=== PATIENT | female | born 1955 | race Caucasian/White ===

== ENCOUNTER 2017-11-06 12:54 | Outpatient (CLI) | payer MEDICARE, MEDICAID ==
[2017-11-06 14:18] LABS: #Basophils 0.1 thou/uL (0.0-0.2); #Eosinphils 0.2 thou/uL (0.0-0.7); #Lymphocytes 2.4 thou/uL (1.20-3.40); #Monocytes 0.5 thou/uL (0.11-0.59); #Neutrophils 5.9 thou/uL (1.40-6.50); %Basophils 0.9 % (0.0-1.0); %Lymphocytes 26.3 % (21.0-51.0); %Monocytes 5.3 % (0.0-10.0); %Neutrophils 65.4 % (42.0-75.0); Hemoglobin 15.1 g/dL (12.0-16.0); Mean Corpuscular Hemoglobin 29.2 pg (27.0-31.0); Mean Corpuscular Volume 88.6 fl (81.0-99.0); Mean Platelet Volume 7.3 fL (7.4-10.4); Platelet Count 357 thou/uL (130-400); RBC Distribution Width 12.3 % (11.5-14.5); Red Blood Cell (RBC) Count 5.19 mill/uL (4.20-5.40)
[2017-11-06 14:31] LABS: Bilirubin Negative (Negative); Blood, Urine Negative (Negative); Clarity CLEAR (Clear); Glucose, Urine (Dipstick) Negative (Negative); Leukocyte Small (Negative); Nitrite Negative (Negative); Protein, Urine (Dipstick) Negative (Neg-Trace); Specific Gravity, Urine 1.011 (1.002-1.036); Urobilinogen 0.2 mg/dL (0.2-1.0)
[2017-11-06 14:34] LABS: Bacteria/HPF 2+ HPF (None Seen); Hyaline Casts/LPF NONE SEEN LPF (0-3 Hyaline); RBC/HPF None Seen HPF (0-3); Squamous Epithelial 0-3 HPF (0-3)
[2017-11-06 14:37] LABS: Anion Gap 13 mmol/L (10-20); BUN (Urea Nitrogen) 10 mg/dL (9.8-20.1); Calc. Creatinine Clearance 0 mL/min (70-130); Calcium 10.1 mg/dL (7.8-10.44); Carbon Dioxide 27 mmol/L (23-31); Chloride 102 mmol/L (98-107); Estimated GFR-MDRD 69; Glucose 142 mg/dL (80-115); Potassium 3.9 mmol/L (3.5-5.1); Sodium 138 mmol/L (136-145)
--- NOTE | 2017-11-06 15:19 | RAD ---
CHEST TWO VIEWS: History: Pre-operative exam. Comparison: None. FINDINGS: Normal cardiac silhouette. The pulmonary vessels and hilum are normal. Costophrenic angles are clear. No consolidation or masses. No pneumothorax or osseous abnormalities. Increased density projecting o bryan the left breast, likely representing a partially calcified lesion. IMPRESSION: No acute cardiopulmonary process. Largely calcified lesion projecting over the left breast which may represent an area of fat necrosis. Left breast mammogram is recommended. Code T POS: MAGGIE
--- NOTE | 2017-12-03 11:07 | EKG ---
Test Reason : Blood Pressure : / mmHG Vent. Rate : 087 BPM Atrial Rate : 087 BPM P-R Int : 166 ms QRS Dur : 062 ms QT Int : 336 ms P-R-T Axes : 055 044 076 degrees QTc Int : 404 ms Normal sinus rhythm Normal ECG When compared with ECG of 05-NOV-2012 12:13, No significant change was found Confirmed by HERMINIO PATEL M.D. ([id number]) on 12/03/2017 11:07:33 AM Referred By: LASHONDA Confirmed By:HERMINIO PATEL M.D.
== END 2017-11-06 12:55 | disposition home or self-care (01) ==
LOC: LABBT 12:54
PROVIDERS: ATTEND Orthopaedic Surgery
DX: Z01.818 Encounter for other preprocedural examination (principal); M17.12 Unilateral primary osteoarthritis, left knee; N64.59 Other signs and symptoms in breast
CPT/HCPCS: 71046; 80048; 81001; 85025; 85610; 86850; 86900; 86901; 87081; 93005; 93010

== ENCOUNTER 2017-11-06 13:15 | Inpatient (IN) | payer MEDICARE, MEDICAID ==
[2017-11-13] MEDS ORDERED: traMADol HCl 50 MG TAB PO PRN ×3 (08:50→10:53)
[2017-11-13] MEDS ORDERED: Fentanyl 100 MCG/2 ML VIAL SLOW IVP PRN ×2 (08:50)
[2017-11-13] MEDS ORDERED: Zolpidem Tartrate 5 MG TAB PO PRN ×2 (08:50→10:53)
[2017-11-13] MEDS ORDERED: HYDROcodone/Acetaminophen 10/325 mg Tablet PO PRN ×3 (08:50→10:53)
[2017-11-13] MEDS ORDERED: Acetaminophen 325 MG TAB PO PRN (08:50)
[2017-11-13] MEDS ORDERED: Ondansetron HCl/PF 4 MG/2 ML Vial IVP PRN ×3 (08:50→12:41)
[2017-11-13] MEDS ORDERED: diphenhydrAMINE 25 MG CAP PO PRN (08:50)
[2017-11-13] MEDS ORDERED: Promethazine HCl 25 MG/ML VIAL IM PRN ×3 (08:50→12:41)
[2017-11-13] MEDS ORDERED: Tranexamic Acid 1,000 MG in Sodium Chloride 0.9% 100 ML IVPB SCH (09:00)
[2017-11-13] MEDS ORDERED: Midazolam HCl 2 mg/2 ml Vial ONE (09:50)
[2017-11-13] MEDS ORDERED: Fentanyl 100 MCG/2 ML VIAL ONE ×4 (09:50→13:29)
[2017-11-13] MEDS ORDERED: CEFAZOLIN/Water 2 GM/20 ML SYRINGE ONE (09:51)
[2017-11-13] MEDS ORDERED: Fentanyl 100 MCG/2 ML VIAL IV PRN (10:53)
[2017-11-13] MEDS ORDERED: Bupivacaine 0.5% 50 ML in Sodium Chloride 0.9% 50 ML NERVE BLCK SCH (10:53)
[2017-11-13] MEDS ORDERED: Ondansetron HCl/PF 4 MG/2 ML Vial ONE (11:25)
[2017-11-13] MEDS ORDERED: Promethazine HCl 25 MG/ML VIAL SLOW IVP PRN (12:41)
--- NOTE | 2017-11-13 12:56 | PDOC.PN ---
- Subjective Encounter Start Date: 11/13/17 Encounter Start Time: 13:53 -: old records requested/rev Subjective: admitted for left total knee replacement -: consulted for medical management - Objective MAR Reviewed: Yes Radiology Reviewed by me: Yes (knee xray) Phys Exam - Physical Examination Constitutional: NAD HEENT: PERRLA, moist MMs, sclera anicteric Neck: no JVD, supple Respiratory: no wheezing, no rales, no rhonchi Cardiovascular: RRR, no significant murmur, no rub Gastrointestinal: soft, non-tender, no distention, positive bowel sounds Musculoskeletal: no edema, pulses present left knee with dressing Neurological: non-focal, normal sensation, moves all 4 limbs Lymphatic: no nodes Psychiatric: normal affect, A&O x 3 Skin: no rash, normal turgor Dx/Plan (1) Status post total left knee replacement Code(s): Z96.652 - PRESENCE OF LEFT ARTIFICIAL KNEE JOINT Status: Acute (2) Anxiety and depression Code(s): F41.9 - ANXIETY DISORDER, UNSPECIFIED; F32.9 - MAJOR DEPRESSIVE DISORDER, SINGLE EPISODE, UNSPECIFIED Status: Chronic (3) Diabetes type 2, controlled Code(s): E11.9 - TYPE 2 DIABETES MELLITUS WITHOUT COMPLICATIONS Status: Chronic (4) GERD (gastroesophageal reflux disease) Code(s): K21.9 - GASTRO-ESOPHAGEAL REFLUX DISEASE WITHOUT ESOPHAGITIS Status: Chronic (5) Hypertension Code(s): I10 - ESSENTIAL (PRIMARY) HYPERTENSION Status: Chronic - Plan cont current plan of care, PT/OT * continue aspirin for DVT prophylaxis as per protocol * continue protonix for GI prophylaxis * Code status: Full code * Home medication reconciled * continue PT/OT as per [facility] protocol treatment. * Pain control with pain meds * medication reviewed as below * symptomatic treatment. Review of Systems - Review of Systems Eyes: negative: Pain, Vision Change, Conjunctivae Inflammation, Eyelid Inflammation, Redness, Other ENT: negative: Ear Pain, Ear Discharge, Nose Pain, Nose Discharge, Nose Congestion, Mouth Pain, Mouth Swelling, Throat Pain, Throat Swelling, Other Respiratory: negative: Cough, Dry, Shortness of Breath, Hemoptysis, SOB with Excertion, Pleuritic Pain, Sputum, Wheezing Cardiovascular: negative: chest pain, palpitations, orthopnea, paroxysmal nocturnal dyspnea, edema, light headedness, other Gastrointestinal: negative: Nausea, Vomiting, Abdominal Pain, Diarrhea, Constipation, Melena, Hematochezia, Other Genitourinary: negative: Dysuria, Frequency, Incontinence, Hematuria, Retention , Other Musculoskeletal: negative: Neck Pain, Shoulder Pain, Arm Pain, Back Pain, Hand Pain, Leg Pain, Foot Pain, Other Skin: negative: Rash, Lesions, Waqas, Bruising, Other - Medications/Allergies Allergies/Adverse Reactions: Allergies Allergy/AdvReac Type Severity Reaction Status Date / Time codeine Allergy Verified 11/06/17 13:10 Medications: Current Medications Acetaminophen (Tylenol) 650 mg PO Q4H PRN PRN Reason: DECKER/ T > 101F; Mild Pain (1-3) Hydrocodone Bitart/Acetaminophen ([place] 10/325) 1 tab PO Q4H PRN PRN Reason: Pain (1-3) Hydrocodone Bitart/Acetaminophen ([place] 10/325) 2 tab PO Q4H PRN PRN Reason: PAIN (4-6) Aspirin (Ecotrin) 81 mg PO BID [facility] Cefazolin Sodium (Ancef) 2 gm SLOW IVP Q8H [facility] Stop: 11/13/17 17:01 Diphenhydramine HCl (Benadryl) 25 mg PO Q6H PRN PRN Reason: Itching Fentanyl (Sublimaze) 50 mcg IV Q1H PRN PRN Reason: BREAKTHROUGH PAIN Fentanyl (Pacu-Sublimaze) 50 mcg SLOW IVP Q10MIN PRN PRN Reason: Moderate to Severe Pain (6-10) Stop: 11/13/17 15:41 Ferrous Gluconate (Fergon) 324 mg PO BID [facility] Fluoxetine HCl (Prozac) 20 mg PO HS [facility] Gabapentin (Neurontin) 600 mg PO HS [facility] Sodium Chloride (Normal Saline 0.9%) 1,000 mls @ 100 mls/hr IV .Q10H [facility] Bupivacaine HCl 50 ml/ Sodium (Chloride) 100 mls @ 0 mls/hr NERVE BLCK INF [facility] PRN Reason: As Directed Iron/Minerals/Multivitamins (Theragran M) 1 tab PO DAILY [facility] Ketorolac Tromethamine (Toradol) 15 mg IVP Q6HR [facility] Stop: 11/15/17 06:01 Losartan Potassium (Cozaar) 50 mg PO HS [facility] Metformin HCl (Glucophage) 1,000 mg PO HS [facility] Ondansetron HCl (Zofran) 4 mg IVP Q6H PRN PRN Reason: Nausea/Vomiting Ondansetron HCl (Pacu-Zofran) 4 mg IVP ONE PRN PRN Reason: Nausea/Vomiting Stop: 11/13/17 15:41 Pantoprazole Sodium (Protonix) 20 mg PO HS [facility] Promethazine HCl (Phenergan) 12.5 mg IM Q4H PRN PRN Reason: Nausea Promethazine HCl (Pacu-Phenergan) 6.25 mg SLOW IVP ONE PRN PRN Reason: Nausea/Vomiting Stop: 11/13/17 15:41 Promethazine HCl (Pacu-Phenergan) 6.25 mg IM ONE PRN PRN Reason: Nausea/Vomiting Stop: 11/13/17 15:41 Senna/Docusate Sodium (Senokot S) 2 tab PO BID [facility] Sodium Chloride (Flush - Normal Saline) 10 ml IVF PRN PRN PRN Reason: Saline Flush Tramadol HCl (Ultram) 50 mg PO Q6H PRN PRN Reason: Mild Pain (1-3) Tramadol HCl (Ultram) 100 mg PO Q6H PRN PRN Reason: Moderate Pain 4-6 Zolpidem Tartrate (Ambien) 5 mg PO HSPRN PRN PRN Reason: Insomnia History of Present Illnes - History of Present Illness Reason for Visit: elective admission for left knee replacement History of Present Illness: s/p left total knee replacement failed outpt conservative treatment consulted for medical management - Past Medical History Cardiac: HTN, Hyperlipidemia Psych: Anxiety, Bipolar, Depression Musculoskeletal: Osteoarthritis Endocrine: Diabetes - Past Surgical History Past Surgical History: Appendectomy, Hysterectomy, Total Knee Replacement (left) - Past Family History Family History: None - Past Social History Smoke: No Alcohol: None Drugs: None Lives: With Family Domestic Violence: Negative
[2017-11-13] MEDS ORDERED: Bupivacaine HCl 0.5%/Epinephrine 1:200,000/PF 30 ml Vial ONE (13:06)
[2017-11-13] MEDS ORDERED: Bupivacaine/Epinephrine 0.25% 30 ML VIAL ONE (13:06)
--- NOTE | 2017-11-13 13:11 | RAD ---
TWO VIEWS OF THE LEFT KNEE: INDICATION: Status post total knee procedure. COMPARISON: Left knee radiograph dated 10/19/17. FINDINGS: Since the comparison examination, there has been interval placement of a left total knee prosthesis. The prosthetic components project in the expected position. There is intraarticular and scattered p eriarticular soft tissue gas consistent with the patient's recent postop state. IMPRESSION: Postoperative left knee. POS: VIKKI
[2017-11-13] MEDS ORDERED: PHENYLEPHRINE-NS 100 MCG/ML 10 ML SYRINGE ONE (13:23)
[2017-11-13] MEDS ORDERED: ePHEDrine/0.9% NaCl/PF SYRINGE 50 mg/10 ml ONE (13:23)
[2017-11-13] MEDS ORDERED: Dexamethasone 20 MG/5 ML VIAL ONE (13:23)
[2017-11-13] MEDS ORDERED: PROPOFOL 200 MG/20 ML VIAL ONE (13:23)
[2017-11-13] MEDS ORDERED: Lidocaine 1% PF 5 ML VIAL ONE (13:23)
--- NOTE | 2017-11-13 13:55 | OP ---
PREOPERATIVE DIAGNOSIS: Degenerative joint disease, left knee. POSTOPERATIVE DIAGNOSIS: Degenerative joint disease, left knee. SURGEON: Derrell Palacios M.D. LEARN TO SWIM INSTRUCTOR: Sonja Vail PA-C BLOOD LOSS: Minimal. SPECIMEN: None. DRAINS: None. COMPLICATIONS: None. TOURNIQUET TIME: 52 minutes. IMPLANTS USED: Natalia Triathlon 4 femur, 4 tibia, 9 mm CSX3 polyethylene, A29 patella. PROCEDURE IN DETAIL: After informed consent was obtained in the preoperative holding area. The luis ent was taken to the operative suite where general anesthesia was induced. Once adequate level of ge neral anesthesia was obtained, the patient was positioned and a well-padded tourniquet was placed xiomara und the left proximal thigh. The left lower extremity was then prepped and draped in the usual steri le fashion. Prior to exsanguination, a time out was called and all members of the surgical team agre ed upon site, surgeon, and patient. The extremity was then exsanguinated and the tourniquet was rais ed. A midline longitudinal incision was then made directly over the patella extending two fingerbrea dths above the superior pole of the patella and two fingerbreadths inferior to the inferior patellar pole of the patella. Deeper subcutaneous layers were dissected sharply and local bleeding was contro lled with Bovie electrocautery. A quad tendon longitudinal split was then made sharply and a median parapatellar arthrotomy was carried out both sharp and with Bovie electrocautery, carried down to one fingerbreadth medial to the tibial tubercle. The knee was then placed into flexion and the patella was everted nicely, and a copious fat pad ectomy was performed allowing for greater exposure of the t ibia. The computer-assisted distal femoral fiducial was then placed and pinned firmly, and the dista l femoral cutting guide was pinned firmly into place. The oscillating saw was then used to remove th e appropriate amount of bone. The 4-in-1 cutting block was then placed on the distal femur and the o scillating saw was used to remove the appropriate amount of bone off of the anterior, posterior, and chamfer cuts. After completion of bone cuts, the anterior cruciate ligament was resected sharply and the posterior cruciate ligament retractor was placed and the tibia was subluxed for better exposure. Partial meniscectomies were carried out, and the tibial computer-assisted fiducial was pinned, and the cutting guide was placed. Oscillating saw was then used to remove the bone with Hohmann retracto rs used to take care and protect the collateral ligaments. After the tibial resection was performed, a laminar auto damage appraiser was placed in between the freshened bone cuts. The knee placed at 90 degrees and further bilateral meniscectomies were carried out, and the curved osteotome and curettage was used t o remove any excess bone spurs in the posterior compartment. Exparel was then injected into the post erior capsule, lucho-articular synovia, pre-patella synovia, and musculature surrounding the capsule. The trial femoral component, tibial baseplate were placed with the appropriate polyethylene trial in sert with an appropriate polyethylene spacer and patellar button. The knee was taken through full ra nge of motion with flexion and extension from 0-90 degrees and patellar broach squarely in the trochl ea without any squinting or subluxation noted. The knee was also stable to varus and valgus stressin g at 0, 15, 45, and 90 degrees of flexion. The drawer was negative. All trial components were then r emoved and the keel punch was used to provide the appropriate defect in the tibia with a mallet. The freshened bone cuts were copiously irrigated with pulsatile lavage of about 1-1/2 liters to remove a ll excess debris. The freshened bone cuts were then dried and with suction and lap sponge. The knee was placed in flexion and retractors were placed to provide access to all bone cuts. Tobramycin imp regnated methyl methacrylate cement was then placed on the freshened bone cuts and implants which wer e malleted firmly into place. Curettage and Belt elevators were used to remove any excess bone ceme nt. The knee was placed into full extension and the patellar button was placed under compression, an d the cement was allowed to cure. Once completed, the components were again taken through full range of motion and copious irrigation of the knee was carried out with another liter of normal saline. A ll components were inspected fully with full range of motion and varus and valgus stressing. There wa s no laxity noted and full extension was observed clinically. Primary closure was accomplished with #2 interrupted Vicryl stitch of the arthrotomy defect. This was oversewn with a #2 running Quill bar bed stitch. The gravitational platelet system was then injected into the arthrotomy prior to closure . The subcutaneous layer was then closed with a running 0 barbed Monocryl stitch and skin closure ac complished with a running subcuticular 3-0 Monocryl barbed Quill stitch and augmented with cement on the skin. Tourniquet was lowered. Good spontaneous return of distal pulses was noted clinically and a sterile dressing was applied to the incision. The procedure was terminated without any complicati ons. The patient was awakened in the operative suite and the tourniquet was removed, and the patient was taken to the recovery room in stable condition.
[2017-11-13] MEDS ORDERED: Ketorolac Tromethamine 30 MG/ML VIAL IVP SCH (14:00)
[2017-11-13] MEDS: Aspirin 81 mg Enteric Coated Tablet PO SCH ×2 (15:42→20:33)
[2017-11-13] MEDS: CEFAZOLIN/Water 2 GM/20 ML SYRINGE SLOW IVP SCH ×2 (15:42→18:15)
[2017-11-13] MEDS: Ferrous Gluconate 324 MG TAB PO SCH ×2 (15:42→20:32)
[2017-11-13] MEDS: Senokot S 8.6-50 MG TAB PO SCH ×2 (15:43→20:30)
[2017-11-13] MEDS: Multivitamin W/ Minerals 1 TAB PO SCH (15:43)
[2017-11-13] MEDS: Ketorolac Tromethamine 30 MG/ML VIAL IVP SCH ×3 (15:43→23:44)
[2017-11-13] MEDS: Sodium Chloride 0.9% 1,000 ML IV SCH ×3 (15:43→23:45)
[2017-11-13] MEDS: Gabapentin 300 MG CAP PO SCH (20:33)
[2017-11-13] MEDS: metFORMIN 500 MG TAB PO SCH (20:33)
[2017-11-13] MEDS: FLUoxetine HCl 20 MG CAP PO SCH (20:34)
[2017-11-13] MEDS: Losartan 25 MG TAB PO SCH (20:35)
[2017-11-14] MEDS: Sodium Chloride 0.9% 1,000 ML IV SCH ×2 (05:03→15:07)
[2017-11-14] MEDS: Ketorolac Tromethamine 30 MG/ML VIAL IVP SCH ×4 (05:40→23:47)
[2017-11-14 05:43] LABS: Hemoglobin 11.9 g/dL (12.0-16.0); Mean Corpuscular HGB CONC 33.3 g/dL (32.0-36.0); Mean Corpuscular Volume 90.3 fl (81.0-99.0); Mean Platelet Volume 7.5 fL (7.4-10.4); Platelet Count 233 thou/uL (130-400); RBC Distribution Width 12.3 % (11.5-14.5); Red Blood Cell (RBC) Count 3.95 mill/uL (4.20-5.40); White Blood Cell (WBC) Count 12.9 thou/uL (4.8-10.8)
[2017-11-14] MEDS: Senokot S 8.6-50 MG TAB PO SCH ×2 (08:33→20:08)
[2017-11-14] MEDS: Aspirin 81 mg Enteric Coated Tablet PO SCH ×2 (08:33→20:08)
[2017-11-14] MEDS: Ferrous Gluconate 324 MG TAB PO SCH ×2 (08:33→20:08)
[2017-11-14] MEDS: Multivitamin W/ Minerals 1 TAB PO SCH (08:33)
--- NOTE | 2017-11-14 09:06 | PDOC.PN ---
- Subjective Encounter Start Date: 11/14/17 Encounter Start Time: 07:50 Patient seen and examined. No new complaints. No overnight events - Objective Resuscitation Status: Resuscitation Status FULL:Full Resuscitation MAR Reviewed: Yes Vital Signs & Weight: Vital Signs (12 hours) Temp Pulse Resp BP Pulse Ox 11/14/17 04:32 97.8 F 96 15 116/71 93 L 11/13/17 23:37 98.1 F 103 H 17 96/63 93 L Weight Weight 170 lb I&O: 11/13/17 11/14/17 11/15/17 06:59 06:59 06:59 Intake Total 1440 Output Total 1650 Balance -210 Result Diagrams: 11/14/17 05:03 Phys Exam - Physical Examination Constitutional: NAD HEENT: PERRLA, moist MMs, sclera anicteric Neck: no JVD, supple Respiratory: no wheezing, no rales, no rhonchi Cardiovascular: RRR, no significant murmur, no rub Gastrointestinal: soft, non-tender, no distention, positive bowel sounds Musculoskeletal: no edema, pulses present left knee surgical site with dressing Neurological: non-focal, normal sensation, moves all 4 limbs Psychiatric: normal affect, A&O x 3 Skin: no rash, normal turgor Dx/Plan (1) Status post total left knee replacement Code(s): Z96.652 - PRESENCE OF LEFT ARTIFICIAL KNEE JOINT Status: Acute (2) Anxiety and depression Code(s): F41.9 - ANXIETY DISORDER, UNSPECIFIED; F32.9 - MAJOR DEPRESSIVE DISORDER, SINGLE EPISODE, UNSPECIFIED Status: Chronic (3) Diabetes type 2, controlled Code(s): E11.9 - TYPE 2 DIABETES MELLITUS WITHOUT COMPLICATIONS Status: Chronic (4) GERD (gastroesophageal reflux disease) Code(s): K21.9 - GASTRO-ESOPHAGEAL REFLUX DISEASE WITHOUT ESOPHAGITIS Status: Chronic (5) Hypertension Code(s): I10 - ESSENTIAL (PRIMARY) HYPERTENSION Status: Chronic - Plan cont current plan of care, PT/OT, hospital social worker * continue aspirin for DVT prophylaxis as per protocol * continue protonix for GI prophylaxis * Code status: Full code * continue Home medication * continue PT/OT as per [facility] protocol treatment. * Pain control with pain meds * medication reviewed as below * symptomatic treatment * continue nerve block * will sign off * call if needed.. Review of Systems - Review of Systems Eyes: negative: Pain, Vision Change, Conjunctivae Inflammation, Eyelid Inflammation, Redness, Other ENT: negative: Ear Pain, Ear Discharge, Nose Pain, Nose Discharge, Nose Congestion, Mouth Pain, Mouth Swelling, Throat Pain, Throat Swelling, Other Respiratory: negative: Cough, Dry, Shortness of Breath, Hemoptysis, SOB with Excertion, Pleuritic Pain, Sputum, Wheezing Cardiovascular: negative: chest pain, palpitations, orthopnea, paroxysmal nocturnal dyspnea, edema, light headedness, other Gastrointestinal: negative: Nausea, Vomiting, Abdominal Pain, Diarrhea, Constipation, Melena, Hematochezia, Other Genitourinary: negative: Dysuria, Frequency, Incontinence, Hematuria, Retention , Other Musculoskeletal: negative: Neck Pain, Shoulder Pain, Arm Pain, Back Pain, Hand Pain, Leg Pain, Foot Pain, Other Skin: negative: Rash, Lesions, Waqas, Bruising, Other - Medications/Allergies Allergies/Adverse Reactions: Allergies Allergy/AdvReac Type Severity Reaction Status Date / Time codeine Allergy Verified 11/06/17 13:10 Medications: Current Medications Acetaminophen (Tylenol) 650 mg PO Q4H PRN PRN Reason: DECKER/ T > 101F; Mild Pain (1-3) Hydrocodone Bitart/Acetaminophen ([place] 10/325) 1 tab PO Q4H PRN PRN Reason: Pain (1-3) Hydrocodone Bitart/Acetaminophen ([place] 10/325) 2 tab PO Q4H PRN PRN Reason: PAIN (4-6) Aspirin (Ecotrin) 81 mg PO BID [facility] Last Admin: 11/14/17 08:33 Dose: 81 mg Diphenhydramine HCl (Benadryl) 25 mg PO Q6H PRN PRN Reason: Itching Fentanyl (Sublimaze) 50 mcg IV Q1H PRN PRN Reason: BREAKTHROUGH PAIN Ferrous Gluconate (Fergon) 324 mg PO BID [facility] Last Admin: 11/14/17 08:33 Dose: 324 mg Fluoxetine HCl (Prozac) 20 mg PO [facility] Last Admin: 11/13/17 20:34 Dose: 20 mg Gabapentin (Neurontin) 600 mg PO [facility] Last Admin: 11/13/17 20:33 Dose: 600 mg Sodium Chloride (Normal Saline 0.9%) 1,000 mls @ 100 mls/hr IV .Q10H [facility] Last Admin: 11/14/17 05:03 Dose: Not Given Bupivacaine HCl 50 ml/ Sodium (Chloride) 100 mls @ 0 mls/hr NERVE BLCK INF [facility] PRN Reason: As Directed Last Admin: 11/14/17 01:22 Dose: 100 mls Iron/Minerals/Multivitamins (Theragran M) 1 tab PO DAILY [facility] Last Admin: 11/14/17 08:33 Dose: 1 tab Ketorolac Tromethamine (Toradol) 15 mg IVP Q6HR [facility] Stop: 11/15/17 06:01 Last Admin: 11/14/17 05:40 Dose: 15 mg Losartan Potassium (Cozaar) 50 mg PO [facility] Last Admin: 11/13/17 20:35 Dose: 50 mg Metformin HCl (Glucophage) 1,000 mg PO [facility] Last Admin: 11/13/17 20:33 Dose: 1,000 mg Ondansetron HCl (Zofran) 4 mg IVP Q6H PRN PRN Reason: Nausea/Vomiting Pantoprazole Sodium (Protonix) 20 mg PO [facility] Last Admin: 11/13/17 20:34 Dose: 20 mg Promethazine HCl (Phenergan) 12.5 mg IM Q4H PRN PRN Reason: Nausea Senna/Docusate Sodium (Senokot S) 2 tab PO BID [facility] Last Admin: 11/14/17 08:33 Dose: 2 tab Sodium Chloride (Flush - Normal Saline) 10 ml IVF PRN PRN PRN Reason: Saline Flush Tramadol HCl (Ultram) 50 mg PO Q6H PRN PRN Reason: Mild Pain (1-3) Tramadol HCl (Ultram) 100 mg PO Q6H PRN PRN Reason: Moderate Pain 4-6 Zolpidem Tartrate (Ambien) 5 mg PO HSPRN PRN PRN Reason: Insomnia
--- NOTE | 2017-11-14 11:16 | DIS ---
DATE OF ADMISSION: 11/13/2017 DATE OF DISCHARGE: Pending DATE OF CONSULTATION: 11/13/2017 PRIMARY CARE PHYSICIAN: Bro Medina M.D. DISCHARGE DISPOSITION: Home. PRIMARY DISCHARGE DIAGNOSES: Left total knee replacement. SECONDARY DISCHARGE DIAGNOSES: Anxiety, depression, diabetes type 2, gastroesophageal reflux disease , and hypertension. PRIMARY PROCEDURES AND OPERATIONS: Left total knee replacement. RADIOLOGICAL INVESTIGATION: Knee x-ray. SIGNIFICANT LABORATORY DATA: Hemoglobin 11.9. DISCHARGE MEDICATIONS: Prozac 20 mg p.o. daily, gabapentin 600 mg p.o. at bedtime, Cozaar 50 mg p.o. at bedtime, metformin 1000 mg p.o. at bedtime, Protonix 40 mg p.o. at bedtime, and Pravachol 20 mg p .o. at bedtime. CONTRAINDICATIONS: None. CODE STATUS: FULL CODE. INPATIENT CONSULTANTS: Dr. Derrell Palacios was primary while in hospital. [facility] Team was consulted for medical comanagement. ALLERGIES: CODEINE. DISCHARGE PLAN: Post hospital, the patient will follow up with Dr. Derrell Palacios as instructed. The patient will follow up with primary care physician in 1 or 2 weeks. HOSPITAL COURSE: The patient is a 62-year-old female who was electively admitted by Dr. Derrell Palacios for left total knee replacement, which was done on 11/13/2017 without any complication. Postoperati vely, at [facility] Sound team was consulted for medical comanagement. We resumed the patient' s home medication while in hospital. The patient remained medically stable while in hospital. The p atient did very well with [facility] protocol treatment. Patient was given aspirin for DVT pro phylaxis. Patient will be given aspirin for DVT prophylaxis upon discharge as well as pain medicatio n as per primary team. The patient will resume all her previous home medications. The patient is medically stable. The pat ient is seen and examined at bedside today. Please see my progress note from today for further oswaldo harper.
[2017-11-14 12:14] VITALS: BMI 28.3
[2017-11-14] MEDS: HYDROcodone/Acetaminophen 10/325 mg Tablet PO PRN ×2 (12:20→20:05)
[2017-11-14] MEDS: Losartan 25 MG TAB PO SCH (20:06)
[2017-11-14] MEDS: metFORMIN 500 MG TAB PO SCH (20:06)
[2017-11-14] MEDS: Gabapentin 300 MG CAP PO SCH (20:08)
[2017-11-14] MEDS: FLUoxetine HCl 20 MG CAP PO SCH (20:08)
[2017-11-15] MEDS: HYDROcodone/Acetaminophen 10/325 mg Tablet PO PRN ×2 (04:40→12:36)
[2017-11-15] MEDS: Sodium Chloride 0.9% 1,000 ML IV SCH ×2 (05:38→12:06)
[2017-11-15] MEDS: Ketorolac Tromethamine 30 MG/ML VIAL IVP SCH (06:33)
[2017-11-15 07:54] LABS: Hemoglobin 10.9 g/dL (12.0-16.0); Mean Corpuscular HGB CONC 33.2 g/dL (32.0-36.0); Mean Corpuscular Hemoglobin 30.4 pg (27.0-31.0); Mean Corpuscular Volume 91.4 fl (81.0-99.0); Mean Platelet Volume 7.9 fL (7.4-10.4); Platelet Count 205 thou/uL (130-400); RBC Distribution Width 12.5 % (11.5-14.5); White Blood Cell (WBC) Count 8.4 thou/uL (4.8-10.8)
[2017-11-15] MEDS: Ferrous Gluconate 324 MG TAB PO SCH (08:52)
[2017-11-15] MEDS: Aspirin 81 mg Enteric Coated Tablet PO SCH (08:52)
[2017-11-15] MEDS: Multivitamin W/ Minerals 1 TAB PO SCH (08:52)
[2017-11-15] MEDS: Senokot S 8.6-50 MG TAB PO SCH (08:53)
[2017-11-15 12:10] VITALS: BP 130/74; TEMP 98.5
== END 2017-11-15 14:15 | disposition home or self-care (01) | DRG 470 ==
LOC: SURG A 11-13 08:14 → SURG B 11-13 14:20
PROVIDERS: ADMIT Orthopaedic Surgery; ATTEND Orthopaedic Surgery
PROC: 0SRD0J9 Replacement of Left Knee Joint with Synthetic Substitute, Cemented, Open Approach (ICD-10-PCS; principal; 2017-11-13)
DX: M17.12 Unilateral primary osteoarthritis, left knee (principal); E11.9 Type 2 diabetes mellitus without complications; E78.00 Pure hypercholesterolemia, unspecified; I10 Essential (primary) hypertension; K21.9 Gastro-esophageal reflux disease without esophagitis; F41.8 Other specified anxiety disorders; Z79.84 Long term (current) use of oral hypoglycemic drugs; Z79.82 Long term (current) use of aspirin; Z88.6 Allergy status to analgesic agent
CPT/HCPCS: 36415; 85027; 96374; C1713; C1776; G8978-GP-CK; G8979-GP-CI; J0670; J1100; J1885; J2001; J2250; J2405; J2704; J3010; J3370; J3490; J7050

== ENCOUNTER 2017-11-07 14:59 | Outpatient (CLI) | payer MEDICARE, MEDICAID | END 2017-11-07 15:00 | disposition home or self-care (01) | LOC: BICMAMMO 14:59 | PROVIDERS: ATTEND Family Medicine | DX: Z12.31 Encounter for screening mammogram for malignant neoplasm of breast; Z85.3 Personal history of malignant neoplasm of breast | CPT/HCPCS: 77063; 77067 ==

== ENCOUNTER 2018-01-24 10:25 | Outpatient (CLI) | payer MEDICARE, MEDICAID | END 2018-01-24 10:26 | disposition home or self-care (01) | LOC: BICCT 10:25 | PROVIDERS: ATTEND Family Medicine | DX: N39.0 Urinary tract infection, site not specified (principal); N20.0 Calculus of kidney; K57.90 Diverticulosis of intestine, part unspecified, without perforation or abscess without bleeding | CPT/HCPCS: 74176 ==

== ENCOUNTER 2019-03-18 09:18 | Outpatient (CLI) | payer MEDICARE, MEDICAID ==
--- NOTE | 2019-03-18 10:06 | MMO ---
Bilateral MAMMO Bilat Screen [facility]. CLINICAL HISTORY: Patient is 64 years old and is seen for screening. The patient has the following family history of breast cancer: mother, at age 40. The patient has a history of malignant (generic) in the left breast in 1995. The patient has a history of left Lumpectomy in 1995 - malignancy radiation therapy. VIEWS: The views performed were: bilateral craniocaudal with tomosynthesis and bilateral mediolateral oblique with tomosynthesis. FILMS COMPARED: The present examination has been compared to prior imaging studies performed at [facility] on 09/28/2003, 03/14/2007, 03/01/2010 and 11/07/2017. MAMMOGRAM FINDINGS: The breasts are almost entirely fat. Right breast: There are no suspicious masses, calcifications or areas of architectural distortion. There are benign appearing calcifications in the right breast. Left breast: There are stable post-operative changes. There are no suspicious masses, suspicious calcifications, or new areas of architectural distortion. IMPRESSION: THERE IS NO MAMMOGRAPHIC EVIDENCE OF MALIGNANCY. A ROUTINE FOLLOW-UP MAMMOGRAM IN 1 YEAR IS RECOMMENDED. THE RESULTS OF THIS EXAM WERE SENT TO THE PATIENT. ACR BI-RADS Category 2 - Benign finding MAMMOGRAPHY NOTE: 1. A negative mammogram report should not delay a biopsy if a dominant of clinically suspicious mass is present. 2. Approximately 10% to 15% of breast cancers are not detected by mammography. 3. Adenosis and dense breasts may obscure an underlying neoplasm. Reported by: SULAIMAN COREAS MD Electonically Signed: [id number]
== END 2019-03-18 09:19 | disposition home or self-care (01) ==
LOC: BICMAMMO 09:18
PROVIDERS: ATTEND Physician Assistant
DX: Z12.31 Encounter for screening mammogram for malignant neoplasm of breast (principal); Z85.3 Personal history of malignant neoplasm of breast; Z80.3 Family history of malignant neoplasm of breast
CPT/HCPCS: 77063; 77067

== ENCOUNTER 2021-01-18 09:25 | Outpatient (CLI) | payer MEDICARE, MEDICAID | END 2021-01-18 09:26 | disposition home or self-care (01) | LOC: DTY/OP 09:25 | PROVIDERS: ATTEND Physician Assistant | DX: E11.65 Type 2 diabetes mellitus with hyperglycemia (principal) | CPT/HCPCS: 97802 ==

== ENCOUNTER 2021-04-22 14:00 | Outpatient (CLI) | payer MEDICARE, MEDICAID ==
[~2021-04-22 14:00] MED LIST: Iopamidol-370 76% 500 ML 1 ML ONE
== END 2021-04-22 14:01 | disposition home or self-care (01) ==
LOC: BICCT 14:00
PROVIDERS: ATTEND Registered Nurse
DX: R10.2 Pelvic and perineal pain (principal); K76.0 Fatty (change of) liver, not elsewhere classified; N20.0 Calculus of kidney; K57.30 Diverticulosis of large intestine without perforation or abscess without bleeding
CPT/HCPCS: 74177; 82565

== ENCOUNTER 2021-04-27 14:21 | Outpatient (CLI) | payer MEDICAID | END 2021-04-27 14:22 | disposition home or self-care (01) | LOC: BICMAMMO 14:21 | PROVIDERS: ATTEND Registered Nurse | DX: Z12.31 Encounter for screening mammogram for malignant neoplasm of breast (principal); Z80.3 Family history of malignant neoplasm of breast; Z85.3 Personal history of malignant neoplasm of breast; Z98.890 Other specified postprocedural states | CPT/HCPCS: 77063; 77067 ==